=== PATIENT | female | born 1975 | race African-American/Black ===

== ENCOUNTER 2016-03-22 21:42 | Emergency (ER) | payer OTHER, MEDICAID ==
[~2016-03-22] VITALS: Ht 177.8 cm; Wt 88.2 kg
[2016-03-22 21:44] VITALS: BP 135/72; PULSE 80; RESP 16; TEMP 98.3; O2SAT 100
--- NOTE | 2016-03-22 23:20 | PD ---
HPI Chief Complaint: Injury Time Seen by Provider: 23:20 Travel History International Travel<30 days: No Contact w/Intl Traveler<30days: No Traveled to known affect area: No History of Present Illness HPI 40 year-old female is no significant medical history presents to the emergency department for evaluation of left knee pain. Patient states she was at [employer] doing a "hole ED ends." She states that she felt like she was "kicked in the side of the knee." She states there was no injury actually sustained but she is concerned that she may have hurt something while doing the stands. Pain right now is a 6 out of 10. Mostly on the medial aspect of the knee. Exacerbated by movement or touch. No alterations in sensation the distal affected extremity. She has no other symptoms to report. PFSH Past Medical History Hx Anticoagulant Therapy: No Diabetes: No Diminished Hearing: No Immunizations Current: Yes ?: Not LMP: 03/15/2016 Menopausal: No : 6 Para: 3 Miscarriage: 2 Ectopic : Yes (08/16/2009) Tubal Ligation: Yes Past Surgical History Gynecologic Surgery: Yes (TUBAL LIGATION ) Social History Alcohol Use: Yes (wine occ) Tobacco Use: No Substance Use: No Allergies-Medications (Allergen,Severity, Reaction): Coded Allergies: Oxycodone (Verified Allergy, Severe, Anaphylaxis, 03/22/16) Reported Meds & Prescriptions Reported Meds & Active Scripts Active Mobic (Meloxicam) 15 Mg Tab 15 Mg PO DAILY PRN Review of Systems Except as stated in HPI: all other systems reviewed are Neg Physical Exam Narrative GENERAL: Well-nourished female patient in no acute distress SKIN: Warm and dry. HEAD: Atraumatic. Normocephalic. EYES: Pupils equal and round. No scleral icterus. No injection or drainage. ENT: No nasal bleeding or discharge. Mucous membranes pink and moist. NECK: Trachea midline. No JVD. CARDIOVASCULAR: Regular rate and rhythm. No murmur appreciated. RESPIRATORY: No accessory muscle use. Clear to auscultation. Breath sounds equal bilaterally. GASTROINTESTINAL: Abdomen soft, non-tender, nondistended. Hepatic and splenic margins not palpable. MUSCULOSKELETAL: No obvious deformities. No clubbing. No cyanosis. No edema. Specific to the left knee: Yimi's test is negative. No laxity with valgus or varus stress. There is tenderness elicited to palpation along the medial aspect of the left knee. Pulses are palpable. Cap refill is within normal limits. NEUROLOGICAL: Awake and alert. No obvious cranial nerve deficits. Motor grossly within normal limits. Normal speech. PSYCHIATRIC: Appropriate mood and affect; insight and judgment normal. Data Data Last Documented VS Vital Signs Date Time Temp Pulse Resp B/P Pulse Ox O2 Delivery O2 Flow Rate FiO2 03/22/16 21:44 98.3 80 16 135/72 100 Orders Knee, Ltd (1 Or 2vws) (03/22/16 ) Ketorolac Inj (Toradol Inj) (03/22/16 23:30) Splint Or Brace Apply/Monitor (03/22/16 23:53) Immobilizer Knee 20 Inch (03/23/16 ) [facility] Medical Decision Making Medical Screen Exam Complete: Yes Emergency Medical Condition: Yes Medical Record Reviewed: Yes Differential Diagnosis Sprain versus contusion versus fracture versus dislocation Narrative Course 40 year-old female presents to emergency department for evaluation left knee pain. X-ray imaging is without acute abnormality. Patient is placed in a canvas knee splint, provided crutches, and encouraged to follow-up with rotating equipment specialist. She agrees to return immediately with any acute worsening symptoms. Diagnosis Primary Impression: Left knee sprain Qualified Code: S83.412A - Sprain of medial collateral ligament of left knee, initial encounter Referrals: Orthopaedic Surgeon Primary Care Physician Patient Instructions: General Instructions, Knee Sprain (ED) Departure Forms: Tests/Procedures, Work Release Enter return to work date: Mar 24, 2016 Additional Instructions: Ice to the affected area may help to alleviate pain Elevate to reduce swelling Knee immobilizer for support Seek orthopedic evaluation Follow-up her primary care provider Return immediately to the emergency department with any acute worsening of symptoms Med/Other Pt SpecificInfo: Prescription(s) given Scripts Meloxicam (Mobic)15 Mg Tab15 Mg PO DAILY PRN (PAIN SCALE 1 TO 10) #14 TAB Ref 0 Prov:Gala Hamilton 03/22/16 Disposition: 01 DISCHARGE HOME Condition: Stable Gala Hamilton Mar 22, 2016 23:20
[2016-03-22] MEDS ORDERED: KETOROLAC TROMETHAMINE 60 MG/2 ML (IM) VIAL IM ONE (23:30)
--- NOTE | 2016-03-22 23:47 | RADRPT ---
EXAM DATE/TIME: 03/22/2016 23:30 [facility] COMPARISON: No previous studies available for comparison. INDICATIONS : Left knee pain. MEDICAL HISTORY : None. SURGICAL HISTORY : None. ENCOUNTER: Initial ACUITY: 1 day PAIN SCORE: 6/10 LOCATION: Left knee. FINDINGS: Two view examination of the left knee demonstrates no evidence of fracture or dislocation. Bony mine ralization is normal. The suprapatellar soft tissues have a normal configuration. CONCLUSION: Unremarkable limited examination of the left knee. Louis Peter MD on March 22, 2016 at 23:45 Board Certified Radiologist. This report was verified electronically.
[2016-03-22] MEDS ORDERED: MOBI15TA PO (23:55)
== END 2016-03-23 00:42 | disposition home or self-care (01) ==
LOC: NEPB 21:42
DX: S83.92XA Sprain of unspecified site of left knee, initial encounter (principal); W18.42XA Slipping, tripping and stumbling without falling due to stepping into hole or opening, initial encounter; Y92.22 Religious institution as the place of occurrence of the external cause; Y99.9 Unspecified external cause status
CPT/HCPCS: 73560; 96372; 99283; E0113; J1885; L1830

== ENCOUNTER 2016-08-10 01:55 | Observation (INO) | payer OTHER, MEDICAID ==
[2016-08-10] VITALS (9 sets, daily range): BP systolic 119–147; BP diastolic 67–78; PULSE 56–80; RESP 16–20; TEMP 98–98.6; O2SAT 98–100
[~2016-08-10 01:55] MED LIST: MOBI15TA PO
[2016-08-10] MEDS ORDERED: ASPIRIN 81 MG CHEW TAB PO ONE (03:00)
[2016-08-10] MEDS ORDERED: NITROGLYCERIN 0.4 MG SL 25 TABS/BTL SL ONE (03:00)
[2016-08-10] MEDS ORDERED: SODIUM CHLORIDE 0.9% FLUSH 10 ML FLUSH IVF PRN (03:00)
[2016-08-10 03:22] LABS: AUTOMATED NEUTROPHIL # 5.6 TH/MM3 (1.8-7.7); BASOPHIL % 0.4 % (0.0-2.0); EOSINOPHIL # 0.2 TH/MM3 (0-0.4); HEMO FLAGS DIFF FINAL; LYMPH % 21.9 % (9.0-44.0); LYMPHOCYTE # 1.8 TH/MM3 (1.0-4.8); MEAN CELL VOLUME 75.3 FL (80.0-100.0); MEAN CORPUSCULAR HEMOGLOBIN 24.1 PG (27.0-34.0); MONO % 6.2 % (0.0-8.0); NEUT % 69.5 % (16.0-70.0); PLATELET COUNT 339 TH/MM3 (150-450); RED BLOOD COUNT 4.25 MIL/MM3 (4.00-5.30); RED CELL DISTRIBUTION WIDTH 16.9 % (11.6-17.2); WHITE BLOOD COUNT 8.1 TH/MM3 (4.0-11.0)
--- NOTE | 2016-08-10 03:31 | PD ---
HPI Chief Complaint: Chest Pain Time Seen by Provider: 02:40 Travel History International Travel<30 days: No Contact w/Intl Traveler<30days: No Traveled to known affect area: No History of Present Illness HPI The patient is a 40 year old female who presents to the [facility] emergency department with a history of chest pain 6 pm. It is in the left side of the chest. It is a sharp pain. She denies having any radiation of the pain. It is constant. Moving makes it worse. Nothing makes it better. She reports having BERNSTEIN. She has had nausea with it. She denies diaphoresis or vomiting. The patient's recent history is complicated by traveling to [place] by car and arriving back on Tuesday. The patient reports having chronic lower extremity pain. She denies having any new lower extremity pain, erythema, or swelling. She denies having any personal history of DVT or PE. She denies having any family history of blood clots. She reports that she does have a history of congestive heart failure in her mother. The patient denies having any trauma to her chest wall. She denies participating in any new exercise program or doing any heavy lifting. She denies having any acid reflux or heartburn symptoms. Her last BM was yesterday. She denies having any blood in her stool or black or tarry stools. On Review of systems, the patient denies any recent fevers, cough, congestion, neck pain, abdominal pain, vomiting, diarrhea, urinary symptoms, or neurologic symptoms. LMP: July 24, 2016 [facility] Past Medical History Narrative Medical intermittent constipation Hx Anticoagulant Therapy: No Diabetes: No Diminished Hearing: No Immunizations Current: Yes Tetanus Vaccination: Unknown Influenza Vaccination: No ?: Not LMP: 07/24/16 Menopausal: No : 6 Para: 3 Miscarriage: 3 Ectopic : Yes (08/16/2009) Tubal Ligation: Yes Past Surgical History Narrative Surgical BTL. Gynecologic Surgery: Yes (TUBAL LIGATION ) Family History Narrative Family History mother has CHF. Social History Alcohol Use: Yes (wine occ) Tobacco Use: No Substance Use: No Allergies-Medications (Allergen,Severity, Reaction): Coded Allergies: Oxycodone (Verified Allergy, Severe, Anaphylaxis, 08/10/16) Reported Meds & Prescriptions Reported Meds & Active Scripts Active No Active Prescriptions or Reported Medications Review of Systems Except as stated in HPI: all other systems reviewed are Neg General / Constitutional: No: Fever Eyes: No: Visual changes HENT: No: Headaches, Congestion Cardiovascular: Positive: Chest Pain or Discomfort, Dyspnea on exertion Respiratory: No: Cough, Shortness of Breath Gastrointestinal: Positive: Nausea, No: Abdominal Pain Genitourinary: No: Dysuria Musculoskeletal: No: Pain Skin: No Rash Neurologic: No: Weakness Psychiatric: No: Depression Endocrine: No: Polydipsia Hematologic/Lymphatic: No: Easy Bruising Physical Exam Narrative General: The patient is a well-developed well-nourished female in no acute distress. Head and Neck exam: Head is normocephalic atraumatic. Eyes: EOMI, pupils are equal round and reactive to light. Nose: Midline septum with pink mucous membranes Mouth: Dentition unremarkable. Moist mucus membranes. Posterior oropharynx is not erythematous. No tonsillar hypertrophy. Uvula midline. Airway patent. Neck: No palpable lymphadenopathy. No nuchal rigidity. No thyromegaly. Cardiovascular: Regular rate and rhythm without murmurs, gallops, or rubs. No pulse deficit to the extremities. The patient reports having chest wall tenderness on palpation along the left sternal border, mid section. No erythema or ecchymosis. No flail segment, no crepitus on palpation. Lungs: Clear to auscultation bilaterally. No wheezes, rhonchi, or rales. Abdomen: Soft, without tenderness to palpation in all 4 quadrants of the abdomen. No guarding, rebound, or rigidity. Normal bowel sounds are audible. No tenderness on palpation of McBurney's point. Negative Santana's sign. Extremities: No clubbing, cyanosis, or edema. 2+ pulses in all 4 extremities. The patient reports calf tenderness on palpation bilaterally, however she reports that this is chronic. There is no erythema or ecchymosis. Negative Homans sign. No palpable cords. Back: No spinous process tenderness to palpation. No costovertebral angle tenderness to palpation. Neurologic Exam: Cranial nerves 2-12 were intact on exam. Strength is 5/5 in all 4 extremities. No sensory deficits noted. No dysdiadochokinesis. Good finger to nose and Heel to davis bilaterally. Skin Exam: No rash noted. Intact skin that is warm and dry. Data Data Last Documented VS Vital Signs Date Time Temp Pulse Resp B/P Pulse Ox O2 Delivery O2 Flow Rate FiO2 08/10/16 03:14 80 16 136/78 99 Room Air 08/10/16 01:57 98.6 Orders Electrocardiogram (08/10/16 02:46) B-Type Natriuretic Peptide (08/10/16 02:46) Ckmb (Isoenzyme) Profile (08/10/16 02:46) Complete Blood Count With Diff (08/10/16 02:46) Comprehensive Metabolic Panel (08/10/16 02:46) D-Dimer (08/10/16 02:46) Magnesium (Mg) (08/10/16 02:46) Prothrombin Time / Inr (Pt) (08/10/16 02:46) Act Partial Throm Time (Ptt) (08/10/16 02:46) Troponin I (08/10/16 02:46) Lipase (08/10/16 02:46) Chest, Single Ap (08/10/16 02:46) Ecg Monitoring (08/10/16 02:46) Bilateral Bp Monitoring (08/10/16 02:46) Iv Access Insert/Monitor (08/10/16 02:46) Oximetry (08/10/16 02:46) Oxygen Administration (08/10/16 02:46) Aspirin Chew (Aspirin Chew) (08/10/16 03:00) Sodium Chloride 0.9% Flush (Ns Flush) (08/10/16 03:00) Nitroglycerin Sl (Nitrostat Sl) (08/10/16 03:00) Ed Urine Pregnancytest Poc (08/10/16 02:46) CKMB (08/10/16 02:45) CKMB% (08/10/16 02:45) Admit Order (Ed Use Only) (08/10/16 04:44) Labs Laboratory Tests Test 08/10/16 02:45 White Blood Count 8.1 TH/MM3 Red Blood Count 4.25 MIL/MM3 Hemoglobin 10.3 GM/DL Hematocrit 32.0 % Mean Corpuscular Volume 75.3 FL Mean Corpuscular Hemoglobin 24.1 PG Mean Corpuscular Hemoglobin 32.0 % Concent Red Cell Distribution Width 16.9 % Platelet Count 339 TH/MM3 Mean Platelet Volume 8.0 FL Neutrophils (%) (Auto) 69.5 % Lymphocytes (%) (Auto) 21.9 % Monocytes (%) (Auto) 6.2 % Eosinophils (%) (Auto) 2.0 % Basophils (%) (Auto) 0.4 % Neutrophils # (Auto) 5.6 TH/MM3 Lymphocytes # (Auto) 1.8 TH/MM3 Monocytes # (Auto) 0.5 TH/MM3 Eosinophils # (Auto) 0.2 TH/MM3 Basophils # (Auto) 0.0 TH/MM3 CBC Comment DIFF FINAL Differential Comment Prothrombin Time 10.4 SEC Prothromb Time International 0.9 RATIO Ratio Activated Partial 29.6 SEC Thromboplast Time D-Dimer Quantitative (PE/DVT) 0.32 MG/L FEU Sodium Level 142 MEQ/L Potassium Level 3.3 MEQ/L Chloride Level 106 MEQ/L Carbon Dioxide Level 27.7 MEQ/L Anion Gap 8 MEQ/L Blood Urea Nitrogen 5 MG/DL Creatinine 0.86 MG/DL Estimat Glomerular Filtration 89 ML/MIN Rate Random Glucose 118 MG/DL Calcium Level 8.6 MG/DL Magnesium Level 2.1 MG/DL Total Bilirubin 0.2 MG/DL Aspartate Amino Transf 12 U/L (AST/SGOT) Alanine Aminotransferase 15 U/L (ALT/SGPT) Alkaline Phosphatase 75 U/L Total Creatine Kinase 117 U/L Creatine Kinase MB 0.9 NG/ML Troponin I LESS THAN 0.02 NG/ML B-Type Natriuretic Peptide 18 PG/ML Total Protein 7.5 GM/DL Albumin 3.7 GM/DL Lipase 135 U/L MDM Medical Decision Making Medical Screen Exam Complete: Yes Emergency Medical Condition: Yes Medical Record Reviewed: Yes Interpretation(s) Last Impressions Chest X-Ray 08/10/16 0246 Signed Impressions: Service Date/Time: Wednesday, August 10, 2016 03:23 - CONCLUSION: The lungs are clear. Lizandro Garzon MD Differential Diagnosis Acute coronary syndrome, versus costochondritis, versus pulmonary embolism, versus pleurisy, versus pneumonia, versus musculoskeletal strain Narrative Course During the course of the patients emergency department visit, the patients history, examination, and differential diagnosis were reviewed with the patient. The patient had IV access obtained and blood work sent for analysis. The patient was placed on a compliance monitor with oximetry and blood pressure monitoring. An EKG was done on arrival. The patient's EKG shows a sinus rhythm heart rate of 60, no acute ST segment elevation or depression, T waves are inverted in lead 3, V1. Respiration is 87 ms, QTC 431 ms. The patient was initially provided aspirin 162 mg by mouth 1, nitroglycerin sublingual times one. The patient had no change in pain related to nitroglycerin administration. The patient was given Toradol 15 mg IV. The patients laboratory studies were reviewed and remarkable for white count of 8.1, hemoglobin 10.3, platelets 339 with a normal differential, CMP is remarkable for potassium of 3.3 which will be supplemented orally, BUN 5, glucose 118, AST 12, CPK 117, troponin I less than 0.02, BNP 18, lipase 135. PT PTT within normal limits, d-dimer is 0.32 decreasing the likelihood of pulmonary embolism in this patient with no other significant risk factors. Radiology studies were reviewed and remarkable for a chest x-ray that showed no acute abnormality. The patients results were discussed with the patient, including the plan of care. I explained that further testing and/ or monitoring is indicated based on the patients history, examination, and/ or laboratory findings. Therefore, I recommended admission for additional evaluation. The patient expressed understanding and was agreeable with this plan. The patient was admitted to the hospital in stable condition and sent to a bed under the care of the chest pain center. Diagnosis Primary Impression: Chest pain, rule out acute myocardial infarction Scripts No Active Prescriptions or Reported Meds Marely Carney MD Aug 10, 2016 03:31
[2016-08-10 03:33] LABS: APTT (PATIENT) 29.6 SEC (24.3-30.1); INTERNATIONAL NORMALIZED RATIO 0.9 RATIO; PROTHROMBIN TIME - PATIENT 10.4 SEC (9.8-11.6)
--- NOTE | 2016-08-10 03:33 | RADRPT ---
EXAM DATE/TIME: 08/10/2016 03:23 [facility] COMPARISON: CHEST SINGLE AP, July 13, 2013, 12:09. INDICATIONS : Chest pain. MEDICAL HISTORY : None. SURGICAL HISTORY : None. ENCOUNTER: Initial ACUITY: 1 day PAIN SCORE: 0/10 LOCATION: Bilateral chest FINDINGS: A single view of the chest demonstrates the lungs to be symmetrically aerated without evidence of mas s, infiltrate or effusion. The cardiomediastinal contours are unremarkable. Osseous structures are intact. CONCLUSION: The lungs are clear. Lizandro Garzon MD on August 10, 2016 at 3:31 Board Certified Radiologist. This report was verified electronically.
[2016-08-10 03:39] LABS: ALT (GPT) 15 U/L (10-53); ANION GAP 8 MEQ/L (5-15); AST (GOT) 12 U/L (15-37); BICARBONATE 27.7 MEQ/L (21.0-32.0); BLOOD UREA NITROGEN 5 MG/DL (7-18); CHLORIDE 106 MEQ/L (98-107); GLOMERULAR FILTRATION RATE 89 ML/MIN (>89); MAGNESIUM 2.1 MG/DL (1.5-2.5); POTASSIUM 3.3 MEQ/L (3.5-5.1); SODIUM (NA) 142 MEQ/L (136-145)
[2016-08-10 03:43] LABS: ALKALINE PHOSPHATASE 75 U/L (45-117); CREATINE KINASE 117 U/L (26-192); TOTAL BILIRUBIN ADULT 0.2 MG/DL (0.2-1.0)
[2016-08-10 03:55] LABS: CKMB 0.9 NG/ML (0.5-3.6)
[2016-08-10] MEDS ORDERED: KETOROLAC TROMETHAMINE 30 MG/ML (IVP) VIAL IV PUSH ONE (05:15)
[2016-08-10] MEDS ORDERED: ONDANSETRON HCL 4 MG/2 ML VIAL IV PRN (05:30)
[2016-08-10] MEDS ORDERED: ACETAMINOPHEN 500 MG CPLT PO PRN (05:30)
[2016-08-10] MEDS ORDERED: SODIUM CHLORIDE 0.9% FLUSH 10 ML FLUSH IV FLUSH PRN (05:30)
[2016-08-10] MEDS ORDERED: POTASSIUM CHLORIDE 20 MEQ CONTROLLED RELEASE TAB PO ONE (06:00)
[2016-08-10 07:57] LABS: CREATINE KINASE 107 U/L (26-192)
[2016-08-10 08:09] LABS: CKMB 0.7 NG/ML (0.5-3.6)
--- NOTE | 2016-08-10 08:54 | HHI.HP ---
HPI Primary Care Physician Non-Staff Chief Complaint Chest pain History of Present Illness 40-year-old female with no significant medical history presents to emergency room for further evaluation of chest pain. Onset yesterday afternoon 6 PM. Location substernal. Characterized as a constant sharp pain. Since pain began pain has waxed and waned in intensity. Pain made worse with deep breathing, palpation to area, and movement. No radiation of pain. No associated symptoms. No recent trauma to area or fall. No known relieving factors. Denies any recent illness. Review of Systems General: No fatigue,weakness, fever, chills, recent illness, or change in appetite. Has been in her general state of health. HEENT: No EDWARDS, no nasal congestion or drainage, no dysphasia CV: Continues to have chest pain as described above. No palpitations. Denies any exertional chest pain and her normal daily activities including exercise. RESP: No SOB, cough, wheeze, or recent URI. No history of asthma. GI: No nausea, vomiting, bowel changes, diarrhea, constipation, pain, distention , melena, blood in the stool. : No dysuria, urgency, frequency EXT: No lower leg edema, no paraesthesias MS: No discomfort or change in ROM, chest discomfort made worse with movement and deep breathing. NEURO: No LOC, or motor/sensory deficits PSYCH: No anxiety, depression SKIN: No rashes, no concerning lesions Past Family Social History Allergies: Coded Allergies: Oxycodone (Verified Allergy, Severe, Anaphylaxis, 08/10/16) Past Medical History None Past Surgical History Tubal ligation Reported Medications No Active Prescriptions or Reported Medications Active Ordered Medications Current Medications Medications (Trade) Dose Ordered Sig/Radha Route Start Time Stop Time Status Last Admin (Tylenol) 500 mg Q4H PRN PO 08/10/16 05:30 (Zofran Inj) 4 mg Q6H PRN IV 08/10/16 05:30 (Pneumovax-23 Inj) 25 mcg ONCE ONCE IM 08/11/16 10:00 08/11/16 10:01 (Flu (Quadrivalent) Vaccine Inj) 0.5 ml ONCE ONCE IM 08/11/16 10:00 08/11/16 10:01 Family History Noncontributory for early onset cardiovascular disease. Social History No known diabetes, hypertension, hyperlipidemia. Lifelong nonsmoker. Denies any alcohol or illegal drug use. Endorses active lifestyle Past cardiac testing None Physical Exam Vital Signs Vital Signs Date Time Temp Pulse Resp B/P Pulse Ox O2 Delivery O2 Flow Rate FiO2 08/10/16 07:31 63 20 122/67 98 08/10/16 06:20 98.0 56 18 119/71 99 08/10/16 05:30 100 21 08/10/16 03:14 80 16 136/78 99 Room Air 08/10/16 03:08 Room Air 08/10/16 03:08 98 Room Air 08/10/16 03:07 62 120/67 08/10/16 02:15 100 08/10/16 01:57 98.6 68 16 134/73 100 Room Air Physical Exam GENERAL: Alert WN, WD, NAD, pleasant, female HEAD: NC, AT EYES: Sclera clear, conjunctiva without injection, pupils equal and round ENT: Mucous membranes pink and moist CV: RRR, without murmur, rub, gallop, no JVD, S1-S2 no S3-S4. RESP: Clear lungs throughout bilateral, no crackles, wheeze, rhonchi, symmetrical chest rise, nonlabored, able to speak in full sentences ABD: Soft, NT, ND, no masses, positive bowel tones EXT: Pulses +24, no dependent edema MS: Normal tone 4 extremities, nontender, no obvious deformities, full range of motion, chest wall pain reproduced with palpation. NEURO: CN II through CN XII grossly intact, motor strength 5/5, gait WNL PSYCH: A+O 3, pleasant affect, appropriate speech, appropriate mood and affect , insight and judgment SKIN: Normal turgor, normal texture, even hair distribution Laboratory Laboratory Tests Test 08/10/16 08/10/16 02:45 06:55 White Blood Count 8.1 Red Blood Count 4.25 Hemoglobin 10.3 Hematocrit 32.0 Mean Corpuscular Volume 75.3 Mean Corpuscular Hemoglobin 24.1 Mean Corpuscular Hemoglobin 32.0 Concent Red Cell Distribution Width 16.9 Platelet Count 339 Mean Platelet Volume 8.0 Neutrophils (%) (Auto) 69.5 Lymphocytes (%) (Auto) 21.9 Monocytes (%) (Auto) 6.2 Eosinophils (%) (Auto) 2.0 Basophils (%) (Auto) 0.4 Neutrophils # (Auto) 5.6 Lymphocytes # (Auto) 1.8 Monocytes # (Auto) 0.5 Eosinophils # (Auto) 0.2 Basophils # (Auto) 0.0 CBC Comment DIFF FINAL Differential Comment Prothrombin Time 10.4 Prothromb Time International 0.9 Ratio Activated Partial 29.6 Thromboplast Time D-Dimer Quantitative (PE/DVT) 0.32 Sodium Level 142 Potassium Level 3.3 Chloride Level 106 Carbon Dioxide Level 27.7 Anion Gap 8 Blood Urea Nitrogen 5 Creatinine 0.86 Estimat Glomerular Filtration 89 Rate Random Glucose 118 Calcium Level 8.6 Magnesium Level 2.1 Total Bilirubin 0.2 Aspartate Amino Transf 12 (AST/SGOT) Alanine Aminotransferase 15 (ALT/SGPT) Alkaline Phosphatase 75 Total Creatine Kinase 117 107 Creatine Kinase MB 0.9 0.7 Troponin I LESS THAN 0.02 LESS THAN 0.02 B-Type Natriuretic Peptide 18 Total Protein 7.5 Albumin 3.7 Lipase 135 Result Diagram: 08/10/1624408/10/16244 Imaging Last Impressions Chest X-Ray 08/10/16245 Signed Impressions: Service Date/Time: Wednesday, August 10, 2016 03:23 - CONCLUSION: The lungs are clear. Lizandro Garzon MD Course EKGs Normal sinus rhythm, normal axis, no ST or T-segment changes Assessment and Plan Assessment and Plan #1 Atypical chest painadmitted chest pain center. Seen and evaluated by Dr. Ashlee Rivera. Will discharge this morning after being ruled out with 3 sets of cardiac enzymes and EKG. No further cardiac testing required as she has no cardiovascular risk factors and chest discomfort appears to be musculoskeletal. #2 Musculoskeletal painnaproxen 500 mg twice a day 5 days followed by naproxen 250 mg twice a day 5 days instructed to take medication with food. Shelly Antony Aug 10, 2016 08:54
[2016-08-10] MEDS ORDERED: SODIUM CHLORIDE 0.9% FLUSH 10 ML FLUSH IV FLUSH SCH (09:00)
[2016-08-10] MEDS ORDERED: NAPR250T PO (11:26)
--- NOTE | 2016-08-10 11:26 | HHI.DCPOC ---
Discharge Care Plan Diagnosis: (1) Musculoskeletal chest pain Goals to Promote Your Health * To prevent worsening of your condition and complications * To maintain your health at the optimal level Directions to Meet Your Goals Take your medications as prescribed Follow your dietary instruction Follow activity as directed Keep your appointments as scheduled Take your immunizations and boosters as scheduled If your symptoms worsen call your PCP, if no PCP go to Urgent Care Center or Emergency Room Smoking is Dangerous to Your Health. Avoid second hand smoke Call the 24-hour hour crisis hotline for domestic abuse at Shelly Antony Aug 10, 2016 11:26
[2016-08-10 12:16] LABS: CREATINE KINASE 122 U/L (26-192)
[2016-08-10 12:29] LABS: CKMB 0.7 NG/ML (0.5-3.6)
--- NOTE | 2016-08-10 18:43 | EKG ---
Date Performed: 08/10/2016 Time Performed: 08:59:30 PTAGE: 40 years EKG: Sinus rhythm NORMAL ECG Since PREVIOUS TRACING , no significant change noted PREVIOUS TRACIN08/10/2016 02.32 DOCTOR: Ashlee Rivera Interpretating Date/Time 08/10/2016 18:43:13
--- NOTE | 2016-08-10 18:44 | EKG ---
Date Performed: 08/10/2016 Time Performed: 02:32:28 PTAGE: 40 years EKG: Sinus rhythm NORMAL ECG Since previous tracing, no significant change noted NO PREVIOUS TRACING DOCTOR: Ashlee Rivera Interpretating Date/Time 08/10/2016 18:44:03
[2016-08-11] MEDS ORDERED: INFLUENZA VIRUS VACCINE (QUADRIVALENT) 0.5 ML SYR IM ONE (10:00)
[2016-08-11] MEDS ORDERED: PNEUMOCOCCAL POLYVALENT INJ 25 MCG/0.5 ML SYR IM ONE (10:00)
== END 2016-08-10 14:58 | disposition home or self-care (01) ==
LOC: NEPE 01:55 → NEDA 04:46 → NEPHCDU 06:00
PROVIDERS: ADMIT Internal Medicine Cardiovascular Disease; ATTEND Internal Medicine Cardiovascular Disease
DX: R07.89 Other chest pain (principal); M79.1 Myalgia; R11.0 Nausea; M79.606 Pain in leg, unspecified
CPT/HCPCS: 71010; 80053; 82550; 82552; 83690; 83735; 83880; 84484; 84703; 85025; 85379; 85610; 85730; 93005; 99285; G0378; J1885

== ENCOUNTER 2016-12-08 17:18 | Emergency (ER) | payer MEDICAID, OTHER ==
[~2016-12-08] VITALS: Ht 180.3 cm; Wt 86.0 kg
[~2016-12-08 17:18] MED LIST changes: -MOBI15TA PO; +NAPR250T PO
[2016-12-08 17:22] VITALS: BP 134/68; PULSE 65; RESP 18; TEMP 98.7; O2SAT 98
[2016-12-08] MEDS ORDERED: predniSONE 50 MG TAB PO ONE (17:45)
[2016-12-08] MEDS ORDERED: PRED-503 PO (17:51)
[2016-12-08] MEDS ORDERED: CYCL1TAB29 PO (17:51)
[2016-12-08] MEDS ORDERED: TRAM50TA PO (17:51)
--- NOTE | 2016-12-08 17:51 | PD ---
HPI Chief Complaint: Numbness/Tingling Time Seen by Provider: 17:28 Travel History International Travel<30 days: No Contact w/Intl Traveler<30days: No Traveled to known affect area: No History of Present Illness HPI The patient is a 41-year-old [place] female who presents to the emergency department for left neck and arm pain. The patient notes a three-day history of neck pain that starts over the left paravertebral muscle and radiates into the left trapezius and down the left arm. She complains of pain over the extensor surface of left forearm as well as the left trapezius that is worse with palpation, movement, and describes it as sharp and shooting. She denies any true weakness to left upper extremity, but does note she has limited range of motion at times secondary to pain. She also complains of pain down the left leg with a history of sciatica and occasional numbness of the left lower extremity. She denies any headache, dysarthria, focal deficits, or history of CVA/TIA. She denies any history of hypertension, hyperlipidemia, tobacco use, or diabetes. She denies any injury to left upper extremity and states she is right-hand dominant. 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 She does not currently have a primary physician. Symptoms are moderate, worse with certain movements and positional changes, and minimally alleviated at rest. PFSH Past Medical History Hx Anticoagulant Therapy: No Asthma: Yes Blood Disorders: No Anxiety: No Depression: No Heart Rhythm Problems: No Cancer: No Cardiovascular Problems: No High Cholesterol: No Chemotherapy: No Chest Pain: Yes Congestive Heart Failure: No COPD: No Diabetes: No Diminished Hearing: No Endocrine: No Genitourinary: No Immune Disorder: No Musculoskeletal: No Neurologic: No Psychiatric: No Reproductive: Yes (tubaligation) Respiratory: No Immunizations Current: Yes Radiation Therapy: No Sleep Apnea: No Thyroid Disease: No ?: Not LMP: 12/02/16 Menopausal: No : 6 Para: 3 Miscarriage: 3 Ectopic : Yes (08/16/2009) Tubal Ligation: Yes Past Surgical History Gynecologic Surgery: Yes (TUBAL LIGATION ) Social History Alcohol Use: Yes (wine occ) Tobacco Use: No Substance Use: No Allergies-Medications (Allergen,Severity, Reaction): Coded Allergies: oxycodone (Unverified Allergy, Severe, Anaphylaxis, 09/28/16) Reported Meds & Prescriptions Reported Meds & Active Scripts Active Naproxen 250 Mg Tab 250 Mg PO BID Take 2 tablets, twice daily x 5 days. Then take 1 tablet, twice daily x 5 days. Take medication with food. Review of Systems Except as stated in HPI: all other systems reviewed are Neg HENT: Positive: Neck Pain, No: Headaches Cardiovascular: No: Chest Pain or Discomfort Respiratory: No: Shortness of Breath Gastrointestinal: No: Nausea, Vomiting, Abdominal Pain Musculoskeletal: Positive: Pain, No: Limited ROM, Weakness Neurologic: No: Focal Abnormalities, Headache, Change in Mentation, Paresthesia , Sensory Disturbance Physical Exam Narrative GENERAL: Awake, alert, pleasant 41-year-old female who appears her stated age and is in no acute respiratory distress. SKIN: Focused skin assessment warm/dry. HEAD: Atraumatic. Normocephalic. EYES: Pupils equal and round. Pupils are 3 mm bilateral and reactive. EOMs are intact. Patient is able to see fingers at a distance of 2 feet without difficulty. ENT: No nasal bleeding or discharge. Mucous membranes pink and moist. NECK: Trachea midline. No JVD. Tenderness to palpation of the left paravertebral muscle and the left trapezius. No tenderness of the cervical vertebrae. CARDIOVASCULAR: Regular rate and rhythm. No murmur appreciated. RESPIRATORY: No accessory muscle use. Clear to auscultation. Breath sounds equal bilaterally. GASTROINTESTINAL: Abdomen soft, non-tender, nondistended. MUSCULOSKELETAL: The patient has pain upon palpation left trapezius as well as over the extensor surface the left forearm, pain is precipitated with active and passive supination and pronation of the left upper extremity, especially against resistance. Positive left radial pulse. NEUROLOGICAL: Awake and alert. No obvious cranial nerve deficits. Motor grossly within normal limits. Normal speech. No drift of the upper or lower extremities. Finger to nose is normal. Tdie-be-[id number] is normal. Sensation is symmetric on the arms, legs, and face. No dysarthria noted. Alert and oriented 4. NIHSS 0. PSYCHIATRIC: Appropriate mood and affect; insight and judgment normal. Data Data Last Documented VS Vital Signs Date Time Temp Pulse Resp B/P (MAP) Pulse Ox O2 Delivery O2 Flow Rate FiO2 12/08/16 17:22 98.7 65 18 134/68 (90) 98 Orders Orders Prednisone (Deltasone) (12/08/16 17:45) [facility] Medical Decision Making Medical Screen Exam Complete: Yes Emergency Medical Condition: Yes Medical Record Reviewed: Yes Differential Diagnosis Differential diagnosis includes neck pain with radiculopathy, herniated disc, carotid dissection, MS, autoimmune disorder, myositis, dermatomyositis, musculoskeletal pain. Narrative Course The patient appears to have radiculopathy type pain that starts in the neck and goes down the left arm with pinpoint tenderness of left trapezius and the left brachial radialis. The patient will be placed on steroids, muscle relaxers, and pain medication. She is advised to follow-up with a primary physician. Return if symptoms worsen or progress. Diagnosis Primary Impression: Neck and shoulder pain Patient Instructions: General Instructions Additional Instructions: Medications as directed. Follow-up with your primary physician. Return if symptoms worsen or progress. Ice and/or heat to the affected area as needed. Med/Other Pt SpecificInfo: Prescription(s) given Scripts Tramadol (Tramadol) 50 Mg Tab 50 MG PO Q6H Y for PAIN, #12 TAB 0 Refills Prov: Alex Allison MD 12/08/16 Cyclobenzaprine (Flexeril) 10 Mg Tab 10 MG PO TID for Muscle Spasm for 7 Days, #90 TAB 0 Refills Prov: Alex Allison MD 12/08/16 Prednisone (Deltasone) 20 Mg Tab 40 MG PO DAILY for 5 Days, #10 TAB 0 Refills Prov: Alex Allison MD 12/08/16 Disposition: 01 DISCHARGE HOME Condition: Stable Alex Allison MD Dec 08, 2016 17:51
== END 2016-12-08 18:20 | disposition home or self-care (01) ==
LOC: PHED 17:18
DX: M54.2 Cervicalgia (principal); M25.512 Pain in left shoulder; M79.605 Pain in left leg; M54.32 Sciatica, left side; J45.909 Unspecified asthma, uncomplicated; R20.0 Anesthesia of skin
CPT/HCPCS: 99284; J7512